=== PATIENT | male | born 2005 | race Caucasian/White ===

== ENCOUNTER 2024-08-16 14:10 | Inpatient (IN) | payer OTHER ==
[~2024-08-16] VITALS: Ht 162.6 cm; Wt 55.8 kg
[2024-08-16 15:00] VITALS: BP 124/62; PULSE 78; RESP 18; TEMP 98.3; O2SAT 100
[2024-08-16] MEDS ORDERED: OxyCODONE HCL 5 MG IR TABLET PO PRN (15:15)
[2024-08-16] MEDS ORDERED: BISACODYL 10 MG RECTAL RECTAL SUPPOSITORY PR PRN (15:15)
[2024-08-16] MEDS ORDERED: ACETAMINOPHEN 325 MG TABLET PO PRN (15:15)
[2024-08-16] MEDS ORDERED: LACTULOSE 20 GM/30 ML SOLUTION UDCUP PO PRN (15:15)
[2024-08-16] MEDS: HEPARIN SODIUM,PORCINE 5,000 UNITS/ML VIAL SQ SCH (16:47)
[2024-08-16 20:00] VITALS: O2SAT 98
[2024-08-16] MEDS: ETHYL ALCOHOL 62% ANTISEPTIC NASAL SANITIZER 0.6 ML AMPUL NASAL SCH (20:18)
[2024-08-16] MEDS: AMANTADINE HCL 100 MG CAPSULE PO SCH (20:20)
[2024-08-16] MEDS: SENNOSIDES/DOCUSATE SODIUM 8.6-50 MG TABLET PO SCH (20:20)
[2024-08-16] MEDS: MELATONIN 5 MG TABLET PO PRN (20:20)
[2024-08-16] MEDS: QUEtiapine FUMARATE 25 MG TABLET PO SCH (20:21)
[2024-08-16] MEDS: -LIDODERM PATCH NOTE- MISC SCH (20:24)
[2024-08-16 21:33] VITALS: BP 124/70; PULSE 88; RESP 18; TEMP 98.4; O2SAT 98
[2024-08-17 06:09] LABS: BASOPHILS % (AUTO) 1.2 % (0.0-2.0); EOSINOPHILS % (AUTO) 3.3 % (1.0-6.0); HEMATOCRIT 39.5 % (41-53); HEMOGLOBIN 13.9 g/dL (13.5-17.5); LYMPHOCYTES # (AUTO) 2.2 K/uL (1.0-4.8); LYMPHOCYTES % (AUTO) 25.1 % (22.0-44.0); MEAN CORPUSCULAR HEMOGLOBIN 31.9 pg (26.0-34.0); MEAN CORPUSCULAR HGB CONC 35.2 G/dL (31.0-37.0); MEAN CORPUSCULAR VOLUME 91 fL (80-100); MONOCYTES # (AUTO) 0.7 K/uL (0.1-1.0); MONOCYTES % (AUTO) 8.3 % (2.0-9.0); NEUTROPHILS # (AUTO) 5.5 K/uL (1.8-7.7); NEUTROPHILS % (AUTO) 62.1 % (40.0-70.0); PLATELET COUNT (AUTO) 389 K/uL (150-450); RED BLOOD CELL COUNT(AUTO) 4.36 MIL/uL (4.50-5.90); RED CELL DISTRIBUTION WIDTH 13.7 % (11.5-14.5); WHITE BLOOD COUNT (AUTO) 8.9 K/uL (4.5-11.0)
[2024-08-17 06:22] LABS: ALANINE AMINOTRANSFERASE 69 U/L (12-78); ALBUMIN 3.5 g/dL (3.4-5.0); ALKALINE PHOSPHATASE 86 U/L (46-116); ANION GAP 4 mmol/L (8-16); ASPARTATE AMINOTRANSFERASE 50 U/L (15-37); BILIRUBIN,TOTAL 0.3 mg/dL (0.1-1.0); CALCIUM, TOTAL 9.3 mg/dL (8.8-10.5); CARBON DIOXIDE 34 mmol/L (22-29); CHLORIDE 100 mmol/L (98-107); CREATININE 1.02 mg/dL (0.60-1.30); GLOMERULAR FILTR. RATE CALC > 60 mL/min (>60); GLUCOSE,RANDOM 96 mg/dL (70-110); POTASSIUM 4.3 mmol/L (3.5-5.1); SODIUM SERUM 138 mmol/L (136-145); TOTAL PROTEIN, SERUM 7.8 g/dL (6.4-8.2); UREA NITROGEN, BLOOD 15 mg/dL (7-18)
[2024-08-17] MEDS: LIDOCAINE 5% TRANSDERMAL PATCH TD SCH (07:44)
[2024-08-17] MEDS: MULTIVITAMINS WITH MINERALS, THERAPEUTIC TABLET PO SCH (07:45)
[2024-08-17 08:05] VITALS: BP 136/74; PULSE 90; RESP 20; TEMP 97.4; O2SAT 97
[2024-08-17 20:00] VITALS: BP 134/73; PULSE 78; RESP 18; TEMP 98.1; O2SAT 99
[2024-08-18 00:23] VITALS: O2SAT 99
[2024-08-18 08:00] VITALS: BP 118/64; PULSE 98; RESP 18; TEMP 97.8; O2SAT 98
[2024-08-18 21:40] VITALS: BP 120/75; PULSE 67; RESP 18; TEMP 98.1; O2SAT 98
[2024-08-19 04:48] VITALS: O2SAT 98
[2024-08-19 08:00] VITALS: BP 128/81; PULSE 87; RESP 18; TEMP 98.1; O2SAT 99
[2024-08-19] MEDS ORDERED: QUEtiapine FUMARATE 25 MG TABLET PO PRN (11:15)
[2024-08-19 20:38] VITALS: BP 119/58; PULSE 83; RESP 18; TEMP 98.8; O2SAT 100
[2024-08-19 22:15] VITALS: O2SAT 100
[2024-08-20] MEDS: ENOXAPARIN SODIUM 40 MG/0.4 ML PF SYRINGE SQ SCH (07:57)
[2024-08-20 08:02] VITALS: BP 116/58; PULSE 92; RESP 18; TEMP 97.9; O2SAT 99
[2024-08-20 20:15] VITALS: BP 121/63; PULSE 88; RESP 18; TEMP 98.7; O2SAT 98
[2024-08-21 00:23] VITALS: O2SAT 98
[2024-08-21] MEDS ORDERED: MULT-248 PO (07:11)
[2024-08-21] MEDS ORDERED: LIDO700A15 TP (07:11)
[2024-08-21] MEDS ORDERED: AMAN-24 PO (07:11)
[2024-08-21 08:05] VITALS: BP 128/44; PULSE 76; RESP 19; TEMP 97.6; O2SAT 100
[2024-08-21 20:00] VITALS: BP 123/65; PULSE 71; RESP 18; TEMP 98; O2SAT 99
[2024-08-22 08:05] VITALS: BP 115/67; PULSE 73; RESP 18; TEMP 98.3; O2SAT 98
[2024-08-22 10:44] VITALS: O2SAT 98
[2024-08-22 20:55] VITALS: BP 133/77; PULSE 84; RESP 18; TEMP 97.5; O2SAT 98
[2024-08-22 20:56] VITALS: O2SAT 98
[2024-08-23 08:00] VITALS: BP 109/71; PULSE 80; RESP 18; TEMP 97.7; O2SAT 99
[2024-08-23 20:26] VITALS: BP 129/73; PULSE 85; RESP 18; TEMP 97.5; O2SAT 98
[2024-08-24 01:00] VITALS: O2SAT 98
[2024-08-24 08:00] VITALS: BP 107/56; PULSE 78; RESP 20; TEMP 98.3; O2SAT 97
[2024-08-24 20:00] VITALS: BP 123/66; PULSE 92; RESP 20; TEMP 98.2; O2SAT 98
[2024-08-25 08:00] VITALS: BP 120/72; PULSE 67; RESP 20; TEMP 97.8; O2SAT 97
[2024-08-25] MEDS ORDERED: AMAN-24 PO (10:48)
[2024-08-25 20:00] VITALS: BP 130/72; PULSE 85; RESP 20; TEMP 98; O2SAT 98
[2024-08-26 08:05] VITALS: BP 116/68; PULSE 80; RESP 18; TEMP 98; O2SAT 98
[2024-08-26 11:35] VITALS: O2SAT 98
== END 2024-08-26 12:00 | disposition home or self-care (01) | DRG 964 ==
LOC: 2WR 14:55
PROVIDERS: ADMIT Physical Medicine & Rehabilitation; ATTEND Physical Medicine & Rehabilitation
DX: S06.9XAA Unspecified intracranial injury with loss of consciousness status unknown, initial encounter (principal); R41.4 Neurologic neglect syndrome; S27.322A Contusion of lung, bilateral, initial encounter; S32.019A Unspecified fracture of first lumbar vertebra, initial encounter for closed fracture; S32.029A Unspecified fracture of second lumbar vertebra, initial encounter for closed fracture; Z74.09 Other reduced mobility; R41.89 Other symptoms and signs involving cognitive functions and awareness; R53.81 Other malaise; R40.2430 Glasgow coma scale score 3-8, unspecified time; R26.0 Ataxic gait; V29.99XA Rider (driver) (passenger) of other motorcycle injured in unspecified traffic accident, initial encounter; Y93.89 Activity, other specified; Y92.89 Other specified places as the place of occurrence of the external cause; Y99.8 Other external cause status
CPT/HCPCS: 70551; 80053; 85025; 87081; 92507; 92523; 97110; 97112; 97116; 97163; 97167; 97530; 97535; 99366; J1644; J1650